=== PATIENT | male | born 1990 | race Caucasian/White ===

== ENCOUNTER 2019-11-07 00:25 | Emergency (ER) | payer SELFPAY ==
[~2019-11-07] VITALS: Ht 175.3 cm; Wt 70.3 kg
[2019-11-07 00:49] VITALS: BP 138/78
[2019-11-07 02:44] LABS: Basophils # (auto) 0.1 uL; Basophils % (auto) 0.6 % (0.0-2.0); Eosinophils # (auto) 0.2 uL; Eosinophils % (auto) 1.6 % (0.0-7.0); Hemoglobin 15.3 g/dL (13.5-17.5); Lymphocytes # (auto) 3.2 uL; Lymphocytes % (auto) 33.2 % (10.0-50.0); Mean Corpuscular Hgb Conc. 33.9 g/dL (32.0-36.0); Mean Corpuscular Volume 85.7 fL (80.0-100.0); Monocytes % (auto) 9.9 % (0.0-12.0); Neutrophils # (auto) 5.3 uL; Neutrophils % (auto) 54.7 % (37.0-80.0); Nucleated Red Blood Cells % 0.1 %; Platelet Count (auto) 230 10^3/uL (140-450); Red Blood Cells 5.25 10^6/uL (4.5-5.90); Red Cell Distribution Width 13.2 % (11.8-14.3); White Blood Cell 9.6 10^3/uL (4.4-10.8)
[2019-11-07 02:56] LABS: Salicylate < 1.7 mg/dL (2.8-20.0)
[2019-11-07 02:57] LABS: Albumin 4.3 g/dL (3.4-5.0); BUN/Creatinine Ratio 22.4; Calcium 9.5 mg/dL (8.5-10.1); Potassium 4.1 mmol/L (3.5-5.1)
[2019-11-07 02:59] LABS: Acetaminophen < 2.0 ug/mL (10-30); Bilirubin, Total 1.2 mg/dL (0.2-1.0)
[2019-11-07] MEDS ORDERED: LORazepam 2MG/ML-1ML VIAL IV ONE (03:45)
== END 2019-11-07 06:55 | disposition home or self-care (01) ==
LOC: EDBD 00:25 → ER 00:25
DX: E86.0 Dehydration (principal); Z88.0 Allergy status to penicillin; F14.10 Cocaine abuse, uncomplicated
CPT/HCPCS: 36415; 70450; 80053; 80320; 80329; 85025